=== PATIENT | male | born 1975 | race American Indian/Alaskan Native ===

== ENCOUNTER 2018-01-05 14:51 | Emergency (ER) | payer SELFPAY ==
[2018-01-05] MEDS ORDERED: BOOSTRIX IM ONE (16:30)
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
[2018-01-05] MEDS ORDERED: MOTRIN PO ONE (16:50)
--- NOTE | 2018-01-05 16:56 | Cat Scan Report ---
FINAL REPORT EXAM: CT HEAD/BRAIN WO CON HISTORY: head injury TECHNIQUE: Noncontrast CT axial images of the brain. PRIORS: None. FINDINGS: No parenchymal mass, mass effect, hemorrhage, midline shift or hydrocephalus. No evidence of acute cortical infarct. No abnormal, extra-axial fluid or air collection. Osseous calvarium grossly intact. IMPRESSION: 1. No acute intracranial findings.
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
[2018-01-05 18:12] VITALS: BP 140/80
== END 2018-01-05 18:10 | disposition home or self-care (01) ==
LOC: ED 14:51
DX: S01.81XA Laceration without foreign body of other part of head, initial encounter (principal); S01.01XA Laceration without foreign body of scalp, initial encounter; S00.01XA Abrasion of scalp, initial encounter; Y08.89XA Assault by other specified means, initial encounter; Y93.89 Activity, other specified; Y92.89 Other specified places as the place of occurrence of the external cause; Y99.8 Other external cause status
CPT/HCPCS: 70450; 70486; 72125; 90471; 90715; 99284

== ENCOUNTER 2018-01-12 10:28 | Emergency (ER) | payer OTHER ==
[2018-01-12 11:24] VITALS: BP 126/81
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
== END 2018-01-12 12:03 | disposition home or self-care (01) ==
LOC: ED 10:28
DX: S01.01XD Laceration without foreign body of scalp, subsequent encounter (principal); Z87.891 Personal history of nicotine dependence; X58.XXXD Exposure to other specified factors, subsequent encounter